=== PATIENT | female | born 1990 | race Asian ===

== ENCOUNTER 2023-06-26 16:09 | Emergency (ER) | payer OTHER ==
[~2023-06-26] VITALS: Ht 167.6 cm; Wt 61.4 kg
[~2023-06-26 16:09] MED LIST: IBUP-1492 PO
[2023-06-26 22:05] LABS: BASOPHILS % (AUTO) 0.7 % (0.0-2.0); EOSINOPHILS % (AUTO) 4.2 % (1.0-6.0); HEMATOCRIT 44.3 % (36-46); HEMOGLOBIN 14.5 g/dL (12.0-16.0); LYMPHOCYTES # (AUTO) 3.7 K/uL (1.0-4.8); LYMPHOCYTES % (AUTO) 43.2 % (22.0-44.0); MEAN CORPUSCULAR HGB CONC 32.8 G/dL (31.0-37.0); MEAN CORPUSCULAR VOLUME 88 fL (80-100); MONOCYTES # (AUTO) 0.6 K/uL (0.1-1.0); MONOCYTES % (AUTO) 6.5 % (2.0-9.0); NEUTROPHILS # (AUTO) 3.9 K/uL (1.8-7.7); NEUTROPHILS % (AUTO) 45.4 % (40.0-70.0); PLATELET COUNT (AUTO) 193 K/uL (150-450); RED BLOOD CELL COUNT(AUTO) 5.01 MIL/uL (4.00-5.20); RED CELL DISTRIBUTION WIDTH 12.7 % (11.5-14.5); WHITE BLOOD COUNT (AUTO) 8.6 K/uL (4.5-11.0)
[2023-06-26 22:06] LABS: APPEARANCE,URINE CLEAR (CLEAR); BILIRUBIN,URINE NEGATIVE (NEGATIVE); COLOR,URINE LIGHT YELLOW (YELLOW); GLUCOSE, URINE (UA) NEGATIVE (NEGATIVE); KETONES,URINE NEGATIVE (NEGATIVE); LEUKOCYTE ESTERASE ,URINE TRACE (NEGATIVE); NITRATE,URINE NEGATIVE (NEGATIVE); OCCULT BLOOD,URINE NEGATIVE (NEGATIVE); PH,URINE 5.5 (5.0-8.0); PROTEIN,URINE NEGATIVE (NEGATIVE); SPECIFIC GRAVITIY, URINE 1.025 (1.003-1.030); UROBILINOGEN,URINE <=1.0 mg/dL (<=1.0)
[2023-06-26 22:15] LABS: ANION GAP 5 mmol/L (8-16); CALCIUM, TOTAL 9.4 mg/dL (8.8-10.5); CARBON DIOXIDE 31 mmol/L (22-29); CHLORIDE 101 mmol/L (98-107); CREATININE 0.77 mg/dL (0.60-1.30); GLOMERULAR FILTR. RATE CALC > 60 mL/min (>60); GLUCOSE,RANDOM 90 mg/dL (70-110); SODIUM SERUM 137 mmol/L (136-145); UREA NITROGEN, BLOOD 11 mg/dL (7-18)
[2023-06-26 22:18] LABS: RBC,URINE 0-2 /HPF (0-2)
[2023-06-26 22:19] LABS: BACTERIA,URINE Few /HPF (None Seen)
[2023-06-26 22:20] LABS: SQUAMOUS EPITHELIAL CELL,UR Moderate /LPF (None Seen)
[2023-06-26 22:27] LABS: ALANINE AMINOTRANSFERASE 33 U/L (12-78); ALBUMIN 4.3 g/dL (3.4-5.0); ALKALINE PHOSPHATASE 47 U/L (46-116); ASPARTATE AMINOTRANSFERASE 22 U/L (15-37); BILIRUBIN,TOTAL 0.6 mg/dL (0.1-1.0); HCG,QUANTITATIVE < 1 mIU/mL (0-6); LIPASE 30 U/L (16-77); TOTAL PROTEIN, SERUM 7.8 g/dL (6.4-8.2)
[2023-06-26] MEDS ORDERED: ACETAMINOPHEN 325 MG TABLET PO ONE (23:00)
[2023-06-26 23:15] LABS: GLUCOMETER DEV NAME(LOC) ER.6; GLUCOSE,POINT OF CARE 89 MG/DL (70-110)
[2023-06-26] MEDS ORDERED: IOHEXOL 350 MG/ML 100 ML VIAL ONE (23:45)
[2023-06-26] MEDS ORDERED: SODIUM CHLORIDE 0.9% 100 ML ONE (23:45)
[2023-06-27] MEDS ORDERED: CEPHALEXIN MONOHYDRATE 500 MG CAPSULE PO ONE (00:45)
[2023-06-27] MEDS ORDERED: ACET-3385 PO (02:22)
[2023-06-27] MEDS ORDERED: CEPH-558 PO (02:22)
[2023-06-27 02:23] VITALS: BP 132/92; PULSE 72; RESP 16; TEMP 98.2
[2023-06-27] MEDS ORDERED: OXYC5 PO (02:29)
[2023-06-27] MEDS ORDERED: KETOROLAC TROMETHAMINE 30 MG/ML VIAL IVP ONE (02:30)
== END 2023-06-27 02:50 | disposition home or self-care (01) ==
LOC: EMS 16:12 → EDSEX 16:12 → EMS 06-27 02:50
DX: N39.0 Urinary tract infection, site not specified (principal); R10.9 Unspecified abdominal pain; Z90.49 Acquired absence of other specified parts of digestive tract
CPT/HCPCS: 99285; 74177; 80053; 81001; 82962; 83690; 84702; 85025; 36415; 87086; 87186; Q9967; J7050